=== PATIENT | male | born 1985 | race African-American/Black ===

== ENCOUNTER 2017-08-21 16:57 | Emergency (ER) | payer OTHER ==
[2017-08-21] MEDS ORDERED: ONDANSETRON HCL/PF 4 MG/2 ML VIAL ONE (17:15)
[2017-08-21] MEDS ORDERED: MORPHINE SULFATE INJ 4 MG/ML DISP.SYRIN ONE (17:15)
--- NOTE | 2017-08-21 17:21 | NUR ---
XRAY AT BS
[2017-08-21] MEDS ORDERED: MORPHINE SULFATE INJ 2 MG/ML DISP.SYRIN IM ONE (17:30)
[2017-08-21] MEDS ORDERED: ONDANSETRON HCL/PF 4 MG/2 ML VIAL IM ONE (17:30)
[2017-08-21] MEDS ORDERED: ACETAMINOPHEN 325 MG TABLET PO ONE (17:30)
[2017-08-21] MEDS ORDERED: ACETAMINOPHEN ES 500 MG TABLET ONE (17:40)
== END 2017-08-21 17:53 | disposition home or self-care (01) ==
LOC: ER 17:15
DX: S43.014A Anterior dislocation of right humerus, initial encounter (principal); X58.XXXA Exposure to other specified factors, initial encounter; Y93.67 Activity, basketball; Y92.89 Other specified places as the place of occurrence of the external cause; Y99.8 Other external cause status
CPT/HCPCS: 23650; 73020; 73030; 99284; J2270; J2405